=== PATIENT | male | born 1950 | race Caucasian/White ===

== ENCOUNTER 2018-02-02 19:19 | Emergency (ER) | payer BC, SELFPAY ==
[2018-02-02 19:34] VITALS: BP 153/83; PULSE 73; RESP 18; TEMP 36.9; O2SAT 98
--- NOTE | 2018-02-03 01:48 | ED.GENADUL_ITS ---
Discharge Plan Discharge Details Chief Complaint: GenMedical Clinical Impression: Dog bite Reason For Visit: Dog Bite Primary Care Provider: Ananth Castle ED Provider: Jacobo Sarah Disposition Patient Disposition: HOME Condition: Good Home Meds and New Rx's Prescriptions: New amoxicillin-pot clavulanate 875-125 mg tablet 1 tab PO BID Qty: 14 RF: 0 No Action aspirin [Aspir-81] 81 MG tablet,delayed release (DR/EC) 81 mg PO DAILY RF: 0 pravastatin 40 MG tablet 40 mg PO DAILY Qty: 90 RF: 3 metformin 500 MG tablet 1,000 mg PO BID 90 Days Qty: 360 RF: 3 Discharge Instructions Instructions: Animal Bite (ED) Additional Instructions: If you notice any worsening of your symptoms, or any new symptoms such as spreading of the redness vomiting, diarrhea, fever, chills, shortness of breath , chest pain, numbness, weakness, or fainting , please return immediately to the emergency department for reevaluation. Please follow up with your primary care provider as soon as possible for reassessment and reevaluation. As always, it was a pleasure participating in your medical care today. Discharge Data Discharge Date/Time-TO BE ENTERED AT DEPARTURE: 02/02/18 21:00 Medical Decision Making MDM Narrative Medical decision making narrative: This is a pleasant 67-year-old male with diabetes, hyperlipidemia, and daily aspirin use who presents for dog bite. Happened early this afternoon. Small skin abrasions noted on the left buttock, and small pressure wounds from teeth dee through pants are noted on the right calf. No active bleeding. No signs of cellulitis or infection. The patient's tetanus is up-to-date for 1 more year. Physical exam demonstrated no other significant abnormalities. Patient did initially clean the bite on the left buttock with hydrogen peroxide soap and water. Currently the patient has no bleeding, no signs of infection, normal sensation, no evidence of laceration requiring repair. With the dog's immunizations being up-to-date. The patient and the patient needing no additional tenderness at this time I do not feel that additional treatment is needed. We did discuss with the patient potential risks and benefits of early rabies vaccines, however the patient states that he believes the elevator installer apprentice of the dog, and does not want any additional testing or medication at this time. I feel that this is certainly reasonable. No evidence of current infection I did recommend regular bandaging with triple antibiotic ointment, and regular daily washings. I did give the patient a prescription for Augmentin and had a long discussion with him regarding the red flags for which would signify an infection. We discussed redness, warmth, and fever and the patient understands. I recommended holding off on the antibiotics unless he sees signs of infection then to return immediately when he does see such signs of potential infections. I have extensively reviewed the treatment plan and discharge instructions with the patient and their family. I have addressed all patient concerns at this time. The patient and family was made aware of what symptoms to monitor for that would warrant a return to the emergency department. Discussed the plan with the patient and family, they demonstrate verbal understanding and agreement with our assessment and plan at this time. This is a 67-year-old male with a past medical history of diabetes mellitus, hyperlipidemia, regular aspirin use, who presents today for dog bite. The patient states that he went into a local store when the [employer] dog immediately came up and bit him once on the left buttock, and right calf. This is mid afternoon. Blood was drawn. He had no other bite dee, no penetration. He was wearing pants and the dog bit through the pants, but did not tear the pants. The dog elevator installer apprentice state that per the patient the dog's immunizations are up-to-date, the dog is never bitten anyone before. The patient had some bleeding by his left buttock, and immediately cleaned the area with hydrogen peroxide water and soap. He came in roughly 6-8 hours later for evaluation. He denies mild pain and soreness at the 2 sites of bite, denies any current bleeding. He denies any associated numbness, tingling, weakness. He denies any fever or chills. Patient denies any aggravating or relieving factors. He denies any IV or illicit drug use or recent surgeries. He denies any pertinent family history. He has no other complaints at this time. Last tetanus shot was 2008, less than 10 years ago. HPI - General Adult General Date/Time Provider Initiated Documentation: 02/02/18 19:49 . Related Data Home Medications Medication Instructions Recorded Confirmed aspirin [Aspir-81] 81 mg PO DAILY tab-cap 09/29/12 02/02/18 Previous Rx's Medication Instructions Recorded amoxicillin-pot clavulanate 1 tab PO BID #14 tab 02/02/18 Allergies Allergy/AdvReac Type Severity Reaction Status Date / Time No Known Allergies Allergy Unverified 10/08/17 09:42 General Stated Complaint: GenMedical NOMAN: 4 Review of Systems Review of Systems 10 point review of systems was performed, pertinent positives and negatives are noted in the history of present illness. 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 Smoking/Tobacco Use Status: Former Tobacco Use quit date: 06/01/88 pack-years: 40 alcohol intake: current alcohol intake frequency: a few times a week Alcohol type: wine substance use type: does not use seatbelt use: always drive intox or ride w/ intox drive away driver: No working smoke detector in home: No fire extinguisher in home: No carbon monox detector in home: No victim of physical abuse: No victim of emotional abuse: No victim of sexual abuse: No Exam Narrative Exam Narrative: 1.Const: Well-nourished, Well-developed, appearing stated age 2.Eyes: PERRL, no conjunctival injection, and symmetrical lids. 3.ENT: Atraumatic external nose and ears. Moist MM. Neck: Symmetric, trachea midline, No thyromegaly. 4.CVS: +S1/S2, No murmurs or gallops. Peripheral pulses 2+ and equal in all extremities. Brisk capillary refill in all extremities. 5.RESP: Unlabored respiratory effort. Clear to auscultation bilaterally. No wheezes rales or rhonchi 6.GI: Soft, Nontender/Nondistended, No hepatosplenomegaly. No guarding or rebound. 7.MSK: Normocephalic/Atraumatic, Extremities w/o deformity or ttp No cyanosis or clubbing, Normal movement of all extremities 8.Skin: Warm, Dry. The patient has an abrasion over his left buttock. No evidence of penetration into the skin. Mild skin tears over this area secondary to bite. There is also evidence of 8 small tooth dee on the patient 's right calf. No evidence of puncture. No signs of active bleeding or significant penetration. Wounds are most likely secondary to notable pressure. 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 Sensation grossly intact, no focal neurologic deficits. 10.Psych: (AAO) x3. Appropriate mood and affect Course Vital Signs Temperature 36.9 C 02/02/18 19:34 Pulse 73 02/02/18 19:34 Respiratory Rate 18 02/02/18 19:34 Blood Pressure 153/83 H 02/02/18 19:34 Pulse Oximetry 98 02/02/18 19:34 Temperature 36.9 C 02/02/18 19:34 Pulse 73 02/02/18 19:34 Respiratory Rate 18 02/02/18 19:34 Blood Pressure 153/83 H 02/02/18 19:34 Pulse Oximetry 98 02/02/18 19:34
--- NOTE | 2018-02-03 06:49 | NUR.NOTE ---
Nursing Note: Faxed animal bite to [facility] at [phone]
== END 2018-02-02 21:00 | disposition home or self-care (01) ==
LOC: ER 21:38
PROVIDERS: Emergency Provider Student in an Organized Health Care Education/Training Program; PCP Family Medicine
DX: S30.810A Abrasion of lower back and pelvis, initial encounter (principal); S81.851A Open bite, right lower leg, initial encounter; W54.0XXA Bitten by dog, initial encounter; E11.9 Type 2 diabetes mellitus without complications; Z79.84 Long term (current) use of oral hypoglycemic drugs
CPT/HCPCS: 99283

== ENCOUNTER 2018-02-05 16:00 | Outpatient (REF) | payer BC, SELFPAY ==
[2018-02-05 18:20] LABS: COMMENT (LAB VIEW ONLY) 121.19 mg/dL; Microalb ug/mg Crea 5.6 ug/mg Cr
== END 2018-02-05 16:20 ==
LOC: LBN 16:00
PROVIDERS: PCP Family Medicine; Visit Provider Family Medicine
DX: E11.9 Type 2 diabetes mellitus without complications (principal)
CPT/HCPCS: 82043; 82570

== ENCOUNTER 2022-08-06 03:03 | Outpatient (CLI) | payer MEDICARE, BC, SELFPAY ==
[2022-08-06 13:43] LABS: Anion Gap 8.8 mmol/L (3-11); BUN 23 mg/dL (7-18); CO2 30.2 mmol/L (21.0-32.0); CREATININE 1.3 mg/dL (0.70-1.30); Calcium 9.5 mg/dL (8.5-10.1); Chloride 103 mmol/L (98-107); Estimated GFR 57.65 (mL/min/1.73m2); Glucose 149 mg/dL (74-106); Potassium 4.6 mmol/L (3.5-5.1); Sodium 142 mmol/L (136-145)
== END 2022-08-06 03:04 | disposition home or self-care (01) ==
LOC: LBO 03:03
PROVIDERS: PCP Family Medicine; Visit Provider Family Medicine
DX: E11.9 Type 2 diabetes mellitus without complications (principal)
CPT/HCPCS: 36415; 80048

== ENCOUNTER 2024-03-08 08:51 | Outpatient (CLI) | payer MEDICARE, BC, SELFPAY ==
[2024-03-08 08:56] LABS: ALT 22 U/L (16-63); AST 26 U/L (15-37); Albumin 3.9 g/dL (3.4-5.0); Alkaline Phosphatase 78 U/L (46-116); Anion Gap 6.8 mmol/L (3-11); BUN 24 mg/dL (7-18); Bilirubin, Total 0.64 mg/dL (0.2-1.0); CO2 30.2 mmol/L (21.0-32.0); Calcium 9.3 mg/dL (8.5-10.1); Calculated LDL 86 mg/dL (<100); Chloride 107 mmol/L (98-107); Cholesterol 147 mg/dL (<200); Glucose 101 mg/dL (74-106); HDL Cholesterol 44 mg/dL (40-60); Potassium 4.2 mmol/L (3.5-5.1); Sodium 144 mmol/L (136-145); Total Protein 7.3 g/dL (6.4-8.2); Triglyceride 88 mg/dL (<150)
== END 2024-03-08 08:52 | disposition home or self-care (01) ==
LOC: LBO 08:51
PROVIDERS: PCP Family Medicine; Visit Provider Family Medicine
DX: E78.5 Hyperlipidemia, unspecified (principal); E11.9 Type 2 diabetes mellitus without complications
CPT/HCPCS: 36415; 80053; 80061; 83036